=== PATIENT | female | born 1950 | race Caucasian/White ===

== ENCOUNTER 2017-08-16 11:30 | Emergency (ER) | payer OTHER, MEDICAID ==
[~2017-08-16] VITALS: Ht 157.5 cm; Wt 79.0 kg
[2017-08-16 11:38] VITALS: Ht 157.5 cm; Wt 79.0 kg
--- NOTE | 2017-08-16 12:13 | ERD ---
ER Documentation Chief Complaint Chief Complaint headache x 6 days, right facial droop x 2 days HPI This is a 67-year-old female presents to the emergency room for evaluation of a headache, facial pain, and facial droop on the right side that she has had for the past 2 days. This patient states that she is unable to close her eye. She states that she is having no weakness anywhere else in her body. She denies any weakness in upper or lower extremities, she says that she came to the ER for evaluation of her symptoms. She has not had these symptoms before. The patient's daughter is here with her who denies any other neuro deficits and states that mother has been acting normally with no slurred speech. ROS All systems reviewed and are negative except as per history of present illness. Physical Exam Vitals Vital Signs Date Time Temp Pulse Resp B/P Pulse Ox O2 Delivery O2 Flow Rate FiO2 08/16/17 11:38 98.4 84 18 128/67 98 Physical Exam Const: No acute distress Head: Atraumatic Eyes: Normal Conjunctiva ENT: Normal External Ears, Nose and Mouth. Neck: Full range of motion..~ No meningismus. Resp: Clear to auscultation bilaterally Cardio: Regular rate and rhythm, no murmurs Abd: Soft, non tender, non distended. Normal bowel sounds Skin: No petechiae or rashes Back: No midline or flank tenderness Ext: No cyanosis, or edema Neur: Right-sided facial droop, inability to close her right eye completely, inability to raise right eyebrow, strength is 5 out of 5 in the upper and lower extremities bilaterally, no other neuro deficits noted Psych: Normal Mood and Affect Results 24 hrs Current Medications Medications (Trade) Dose Ordered Sig/Romie Route PRN Reason Start Time Stop Time Status Last Admin Dose Admin Acyclovir (Zovirax) 800 mg ONCE ONCE PO 08/16/17 12:30 08/16/17 12:31 Prednisone (Prednisone) 40 mg ONCE ONCE PO 08/16/17 12:30 08/16/17 12:31 Procedures/MDM This 67-year-old female presented to the ER for evaluation of facial droop. This patient does have right-sided facial droop however no other neuro deficits. The patient had the symptoms for 2 days. She is unable to raise her right eyebrow completely, is unable to close her right eye. 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 The patient was given acyclovir and prednisone in the emergency room and will be discharged home with a prescription for valacyclovir, prednisone, and eyedrops with instructions to follow-up with her primary care physician or return to the ER for further evaluation of her symptoms worsen. I doubt stroke at this time given this patient's lack of any other neurological findings Departure Diagnosis: Primary Impression: Morse's palsy Condition: Stable YOLA MEZA DO Aug 16, 2017 12:13
[2017-08-16] MEDS ORDERED: EYE15DRO OP (12:17)
[2017-08-16] MEDS ORDERED: VALA10004 PO (12:17)
[2017-08-16] MEDS ORDERED: PRED20TA PO (12:17)
[2017-08-16] MEDS ORDERED: ACYCLOVIR 800 MG TAB PO ONE (12:30)
[2017-08-16] MEDS ORDERED: predniSONE 20 MG TAB PO ONE (12:30)
[2017-08-16 13:05] VITALS: BP 140/78; PULSE 79; RESP 20
== END 2017-08-16 13:06 | disposition home or self-care (01) ==
LOC: E/R 11:30
DX: G51.0 Bell's palsy (principal); R40.2142 Coma scale, eyes open, spontaneous, at arrival to emergency department; R40.2252 Coma scale, best verbal response, oriented, at arrival to emergency department; R40.2362 Coma scale, best motor response, obeys commands, at arrival to emergency department
CPT/HCPCS: 99284; J7512

== ENCOUNTER 2018-02-01 09:24 | Emergency (ER) | END 2018-02-01 12:15 | disposition home or self-care (01) ==